=== PATIENT | female | born 1955 | race Asian ===

== ENCOUNTER 2016-11-17 05:35 | Day surgery (SDC) | END 2016-11-17 16:44 | disposition home or self-care (01) | DX: K21.9 Gastro-esophageal reflux disease without esophagitis (principal); K29.70 Gastritis, unspecified, without bleeding; K44.9 Diaphragmatic hernia without obstruction or gangrene | CPT/HCPCS: 43239; 87081; J2250; J3010; Z7610 ==

== ENCOUNTER 2017-12-28 07:05 | Day surgery (SDC) | END 2017-12-28 10:10 | disposition home or self-care (01) ==